=== PATIENT | female | born 1985 | race Asian ===

== ENCOUNTER 2022-07-26 09:09 | Emergency (ER) | payer MEDICAID ==
[~2022-07-26] VITALS: Ht 170.2 cm; Wt 63.5 kg
[2022-07-26 09:17] VITALS: BP 110/72
--- NOTE | 2022-07-26 09:26 | NUR ---
PT AMBULATORY TO BED 08
--- NOTE | 2022-07-26 09:39 | NUR ---
lab at bedside
--- NOTE | 2022-07-26 09:50 | NUR ---
36 y/o female bib self for Suicidal Ideation. Per patient "she doesn't want to live anymore." Patient states she "has a different plan everyday." Patient denies any harm to others or visual hallucinations. Patient reports hearing voices but is unsure what they are saying. Denies any previous SI attempts. Medical History: Denies NKDA
[2022-07-26 09:52] LABS: BASOPHILS # (AUTO) 0.1 K/uL (0.00-0.22); BASOPHILS % (AUTO) 1.2 % (0.0-2.0); EOSINOPHILS # (AUTO) 0.2 K/uL (0-0.4); EOSINOPHILS % (AUTO) 4.2 % (0.0-4.0); HEMATOCRIT 43.7 % (36-48); HEMOGLOBIN 14.6 g/dL (12.0-16.0); LYMPHOCYTES # (AUTO) 1.3 K/uL (2.5-16.5); LYMPHOCYTES % (AUTO) 25.6 % (20.5-51.1); MEAN CORPUSCULAR HEMOGLOBIN 31 pg (27-31); MEAN CORPUSCULAR HGB CONC 33 g/dL (33-37); MEAN CORPUSCULAR VOLUME 92.5 fL (80-94); MONOCYTES # (AUTO) 0.5 K/uL (0.8-1.0); MONOCYTES % (AUTO) 10.5 % (1.7-9.3); NEUTROPHILS % (AUTO) 58.5 % (42.2-75.2); PLATELET COUNT (AUTO) 263 K/uL (140-450); RED BLOOD CELL COUNT(AUTO) 4.73 MIL/uL (4.20-5.40); RED CELL DISTRIBUTION WIDTH 13.6 % (11.6-13.7); WHITE BLOOD COUNT (AUTO) 5.2 K/uL (4.8-10.8)
[2022-07-26 10:17] LABS: ALBUMIN 4.1 g/dL (3.4-5.0); ASPARTATE AMINOTRANSFERASE 20 U/L (15-37); CARBON DIOXIDE 26.7 mmol/L (21-32); CHLORIDE 101 mmol/L (98-107); CREATININE 0.8 mg/dL (0.6-1.3); GFR ARICAN-AMERICAN 103 mL/min (>90); GLUCOSE 84 mg/dL (74-106); POTASSIUM 3.7 mmol/L (3.5-5.1); SODIUM SERUM 138 mmol/L (136-145); TOTAL BILIRUBIN 0.7 mg/dL (0.0-1.0); UREA NITROGEN, BLOOD 12 mg/dL (7-18)
[2022-07-26 10:24] LABS: BARBITURATE, URINE NEGATIVE ng/ml (NEG <=200); BENZODIAZEPINE, URINE NEGATIVE ng/mL (NEG <=200); CANNABINOID, URINE NEGATIVE ng/mL (NEG <=50); COCAINE, URINE NEGATIVE ng/mL (NEG <=300); OPIATE, URINE NEGATIVE ng/mL (NEG <=2000); PHENCYCLIDINE SCREEN,URINE NEGATIVE ng/mL (NEG <=25)
[2022-07-26 10:25] LABS: SALICYLATE < 2.8 mg/dL (2.8-20.0)
[2022-07-26 10:34] LABS: ACETAMINOPHEN < 0.5 ug/ml (10-30)
[2022-07-26] MEDS ORDERED: OLANZapine 5 MG ODT SL ONE (11:10)
--- NOTE | 2022-07-26 12:21 | NUR ---
Patient is laying in bed, respirations even and unlabored. All needs met by staff.
--- NOTE | 2022-07-26 12:39 | NUR ---
Dr. Slater, psychiatrist, evaluating patient via [employer].
--- NOTE | 2022-07-26 12:45 | NUR ---
Per Dr. Slater, recommends 5150 hold and psychiatric inpatient facility.
--- NOTE | 2022-07-26 13:55 | NUR ---
Patient is laying in bed, respirations even and unlabored. All needs met by staff.
--- NOTE | 2022-07-26 14:10 | NUR ---
Patient packet faxed to [facility], [facility], [place], [place] [facility], [place] [facility]. [facility]
--- NOTE | 2022-07-26 15:09 | NUR ---
Report given to Darrell Brewer [facility].
--- NOTE | 2022-07-26 17:02 | NUR ---
Patient is resting on bed, all needs met by staff.
--- NOTE | 2022-07-26 17:13 | NUR ---
The patient's care was reviewed and supervised by [place] [facility], RN.
[2022-07-26 17:32] VITALS: BP 112/68
--- NOTE | 2022-07-26 17:32 | NUR ---
Patient to be transferred to [facility]. Is being transferred due to Higher Level of Care. Receiving facility has accepting physician and available space. ER physician has signed transfer form. Patient or responsible republican has agreed to transfer and signed form. Patient belongings inventoried and will be sent with patient. Copy of nursing notes, lab reports, EKG, Physicians Orders and X-rays to be sent with patient. Report called to Darrell at receiving facility. [facility] ambulance service has been called for transfer. ETA is now.
--- NOTE | 2022-07-26 17:34 | NUR ---
[facility] AT BEDSIDE
--- NOTE | 2022-07-26 18:24 | NUR ---
The patient's care was reviewed and supervised by [place] [facility], RN.
[2022-07-26] MEDS ORDERED: OLANZapine 5 MG ODT PO SCH (21:00)
[2022-07-27] MEDS ORDERED: FLUoxetine 10 MG CAP PO SCH (09:00)
== END 2022-07-26 18:24 ==
LOC: MED 09:09
DX: R44.0 Auditory hallucinations (principal); R45.851 Suicidal ideations; Z20.822 Contact with and (suspected) exposure to COVID-19
CPT/HCPCS: 36415; 80053; 80305; 81025; 85025; 87426; 87635; 99283; C9803; G0480; G0482